=== PATIENT | male | born 1990 | race Caucasian/White ===

== ENCOUNTER 2025-01-19 12:05 | Emergency (ER) | payer OTHER ==
[2025-01-19 12:26] LABS: BASOPHILS ABSOLUTE AUTO 0.10 K/uL (0.00-0.20); BASOPHILS PERCENT AUTO 1.2 % (0.0-1.0); EOSINOPHILS ABSOLUTE AUTO 0.18 K/uL (0.00-0.45); EOSINOPHILS PERCENT AUTO 2.2 % (0.0-6.0); IMMATURE GRAN ABSOLUTE AUTO 0.03 K/uL (0.00-0.05); IMMATURE GRAN PERCENT AUTO 0.4 % (0.0-0.4); LYMPHOCYTES ABSOLUTE AUTO 2.77 K/uL (1.00-4.80); LYMPHOCYTES PERCENT AUTO 33.7 % (24.0-44.0); MEAN PLATELET VOLUME 9.2 fL (9.4-12.4); MONOCYTES ABSOLUTE AUTO 0.71 K/uL (0.00-0.80); MONOCYTES PERCENT AUTO 8.6 % (0.0-8.0); NEUTROPHILS ABSOLUTE AUTO 4.42 K/uL (1.80-7.70); NEUTROPHILS PERCENT AUTO 53.9 % (41.0-71.0); NRBC ABSOLUTE 0.00 K/uL (0.00-0.02); NRBC PERCENT 0.0 /100WBC (0.0-0.2); PLATELET COUNT,PLT 307 K/uL (150-400); RED BLOOD CELL COUNT 4.94 M/uL (4.52-5.90); WHITE BLOOD CELL COUNT,WBC 8.21 K/uL (3.9-11.3)
[2025-01-19 13:00] LABS: A/G RATIO 1.2 (0.9-1.6); ALANINE AMINOTRANSFERASE,ALT 45 IU/L (14-63); ASPARTATE AMNIOTRANSFERASE,AST 33 IU/L (15-37); BILIRUBIN TOTAL 0.3 mg/dL (0.2-1.0); BLOOD UREA NITROGEN,BUN 9 mg/dL (7.0-18.0); CARBON DIOXIDE,CO2 23.6 mmol/L (21.0-32.0); CHLORIDE,CL 104 mmol/L (98-107); CREATININE 1.2 mg/dL (0.8-1.3); EST CRCL DRUG DOSING (CG) 85.92 mL/min; ETHANOL BLOOD MEDICAL 280 mg/dL; GLUCOSE RANDOM 91 mg/dL (74-106); POTASSIUM,K 3.6 mmol/L (3.5-5.1); PRO B-TYPE NATRIUR PEPT,BNPPRO 10 pg/mL (0-125); PROTEIN TOTAL,TP 7.9 g/dL (6.4-8.2); SODIUM,NA 139 mmol/L (136-148)
[2025-01-19 13:01] LABS: ESTIMATED GFR 81 mL/min (>60)
== END 2025-01-19 14:10 | disposition home or self-care (01) ==
LOC: MW.ED 12:05
DX: F41.9 Anxiety disorder, unspecified (principal); F10.120 Alcohol abuse with intoxication, uncomplicated; Y90.8 Blood alcohol level of 240 mg/100 ml or more
CPT/HCPCS: 36415; 71045; 71045-26; 80053; 80307; 83690; 83735; 83880; 84484; 85025; 93005; 93010; 99284; 99285